=== PATIENT | male | born 1995 | race Caucasian/White ===

== ENCOUNTER 2025-01-20 13:52 | Emergency (ER) | payer OTHER, SELFPAY ==
[2025-01-20 14:02] VITALS: BP 128/65; PULSE 84; RESP 16; TEMP 36.7; O2SAT 99
--- NOTE | 2025-01-20 15:10 | PC.NURSE ---
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
== END 2025-01-20 15:11 | disposition left against medical advice (07) ==
PROVIDERS: Emergency Provider Nurse Practitioner
DX: Z53.21 Procedure and treatment not carried out due to patient leaving prior to being seen by health care provider (principal)
CPT/HCPCS: 99199